=== PATIENT | male | born 1990 | race Caucasian/White ===

== ENCOUNTER 2017-08-19 20:41 | Emergency (ER) | payer OTHER ==
[2017-08-19 20:49] VITALS: BP 149/105; PULSE 119; RESP 16; TEMP 98.7
[2017-08-19] MEDS ORDERED: BACITRACIN/POLYMYX 500-10,000 UNIT/GM OINT 14 GM TUBE TOPICAL STA (20:57)
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
[2017-08-19] MEDS ORDERED: DIPH,PERTUS(ACELL)TETVAC-LF 0.5 ML VIAL IM ONE (21:39)
[2017-08-19] MEDS ORDERED: LIDOCAINE 2% GEL 5 ML TUBE TOPICAL ONE (22:04)
== END 2017-08-19 22:15 | disposition left against medical advice (07) ==
LOC: EC 20:41
DX: S40.812A Abrasion of left upper arm, initial encounter (principal); S40.811A Abrasion of right upper arm, initial encounter; S50.312A Abrasion of left elbow, initial encounter; S80.812A Abrasion, left lower leg, initial encounter; S80.811A Abrasion, right lower leg, initial encounter; S70.312A Abrasion, left thigh, initial encounter; S70.311A Abrasion, right thigh, initial encounter; Z23 Encounter for immunization; Z53.29 Procedure and treatment not carried out because of patient's decision for other reasons; V28.4XXA Motorcycle driver injured in noncollision transport accident in traffic accident, initial encounter; Y92.410 Unspecified street and highway as the place of occurrence of the external cause
CPT/HCPCS: 90471; 90715; 99283

== ENCOUNTER 2020-07-22 18:38 | Emergency (ER) | payer OTHER ==
[2020-07-22] MEDS ORDERED: RABIES VACCINE (PCEC) 2.5 UNIT KIT IM ONE (19:20)
[2020-07-22] MEDS ORDERED: RABIES IMMUNE GLOB 300 UNIT/ML 1 ML VIAL IM ONE (19:20)
[2020-07-22] MEDS ORDERED: RABIES IMMUNE GLOB 300 UNIT/ML 5 ML VIAL IM ONE (19:30)
[2020-07-22 20:46] VITALS: BP 123/73; PULSE 84; RESP 22; TEMP 97.5
--- NOTE | 2020-07-26 20:59 | ED ---
Animal Bite HPI - General Chief Complaint: Animal Bite Stated Complaint: Bit by a bat Time Seen by Provider: 07/22/20 19:07 Source: patient Mode of arrival: ambulatory Limitations: no limitations - History of Present Illness Initial Comments: 30-year-old male presents to emergency Department with a chief complaint of a bat bite. States this occurred about one hour prior to arrival. Patient reports he gripped the bed with his right hand and killed it but he believes it bit him on one of the fingers. He does not know exactly which one it was. Lauren ent is requesting rabies prophylaxis. Denies other symptoms. Has no pain in the fingers or hand. - Related Data Previous Rx's Medication Instructions Recorded Bacitracin/Polymyxin B Sulfate 1 applic TOPICAL BID #400 gm 08/19/17 [Bacitracin-Polymyxin Ointment] Allergies Allergy/AdvReac Type Severity Reaction Status Date / Time No Known Allergies Allergy Verified 07/22/20 18:45 Review of Systems ROS Statement: Those systems with pertinent positive or pertinent negative responses have been documented in the HPI. ROS Other: All systems not noted in ROS Statement are negative. Past Medical History Past Medical History: No Reported History History of Any Multi-Drug Resistant Organisms: None Reported Past Surgical History: No Surgical Hx Reported Past Psychological History: No Psychological Hx Reported Smoking Status: Never smoker Past Alcohol Use History: Occasional Past Drug Use History: None Reported General Exam - General Exam Comments Initial Comments: General: Well-developed well-nourished distress HEENT: Normocephalic/atraumatic, PERLL, pharynx erythema, swallowing well, EAC no erythema, no exudates, TM clear, no cervical lymph nodes Neck: Supple, nontender, trachea midline Chest/Lungs: Normal respirations, no signs of respiratory distress clear to auscultation bilaterally no wheezes, rales, rhonchi Cardiac: Regular rate and rhythm, normal S1-S2, no murmurs rubs or gallops Abdomen/GI: Soft nontender, bowel sounds equal or quadrant x4, no guarding, no rebound no CVA tenderness Musculoskeletal: Nontender, full range of motion, no edema, strength equal bilaterally Skin: Warmth, no rashes or lesions, no cyanosis or diaphoresis Neurologic: AAO x 3, CN 2-12 intact, Psychiatric: Mood and affect normal, judgment normal Limitations: no limitations Course Vital Signs 07/22/20 18:43 Temperature 98.7 F Pulse Rate 89 Respiratory 20 Rate Blood Pressure 165/89 O2 Sat by Pulse 99 Oximetry Medical Decision Making - Medical Decision Making 30-year-old male presents to the emergency Department with chief complaint of bat bite. Will given demonstration of immunoglobulin and a rabies vaccine in a serial manner. The medial globulin was administered in the deltoid. Return parameters were discussed with patient was understanding ago. Case discussed with Dr. Pollard. Disposition Clinical Impression: Bite by animal Disposition: HOME SELF-CARE Condition: Stable Instructions (If sedation given, give patient instructions): Animal Bite (ED) Additional Instructions: Please return to the Emergency Department if symptoms worsen or any other concerns. Is patient prescribed a controlled substance at d/c from ED?: No Referrals: None,Stated [Primary Care Provider] - 1-2 days Time of Disposition: 19:23
== END 2020-07-22 20:46 | disposition home or self-care (01) ==
LOC: EC 18:38
DX: S61.451A Open bite of right hand, initial encounter (principal); W64.XXXA Exposure to other animate mechanical forces, initial encounter
CPT/HCPCS: 90375; 90675; 96372; 99282